=== PATIENT | male | born 1975 | race Caucasian/White ===

== ENCOUNTER 2017-12-23 04:25 | Emergency (ER) | payer OTHER ==
[~2017-12-23] VITALS: Ht 154.9 cm; Wt 74.8 kg
--- NOTE | 2017-12-23 04:37 | NUR ---
CALLED [employer] [facility] AND PRESENTED CASE TO OPEARATOR [id number]. "WE'LL SEND SOMEONE THERE".
[2017-12-23 04:41] VITALS: BP 128/86
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
[2017-12-23] MEDS ORDERED: HYDROCODONE/APAP 10/325MG 1 EA TABLET ONE (04:58)
[2017-12-23] MEDS ORDERED: HYDROCODONE/APAP 10/325MG 1 EA TABLET PO ONE (05:00)
--- NOTE | 2017-12-23 05:03 | NUR ---
[facility] AT BEDSIDE FOR REPORT.
== END 2017-12-23 06:26 | disposition home or self-care (01) ==
LOC: ER 04:30
DX: M79.1 Myalgia (principal); M54.9 Dorsalgia, unspecified; F41.9 Anxiety disorder, unspecified; Y93.89 Activity, other specified; Y92.89 Other specified places as the place of occurrence of the external cause; Y99.8 Other external cause status
CPT/HCPCS: 99283; A4606; Z7610

== ENCOUNTER 2020-03-14 00:29 | Emergency (ER) | payer OTHER ==
[~2020-03-14] VITALS: Ht 177.8 cm; Wt 95.7 kg
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
--- NOTE | 2020-03-14 00:39 | NUR ---
xray at bedside
--- NOTE | 2020-03-14 01:16 | NUR ---
AT BEDSIDE FOR SUTURE
[2020-03-14] MEDS ORDERED: LIDOCAINE 1%-EPI 1:100,000 20 ML VIAL TP ONE (01:30)
[2020-03-14 01:38] VITALS: BP 131/69
--- NOTE | 2020-03-14 01:38 | NUR ---
Patient discharged to home in stable condition. Written and verbal after care instructions given. Patient verbalizes understanding of instruction. Pt ambulated with steady gait.
== END 2020-03-14 01:39 | disposition home or self-care (01) ==
LOC: ER 00:31
DX: S46.221A Laceration of muscle, fascia and tendon of other parts of biceps, right arm, initial encounter (principal); W18.39XA Other fall on same level, initial encounter; Y93.89 Activity, other specified; Y92.89 Other specified places as the place of occurrence of the external cause; Y99.8 Other external cause status
CPT/HCPCS: 12002; 73060; 99283; A6403